=== PATIENT | male | born 1940 | race Caucasian/White ===

== ENCOUNTER 2018-04-15 10:01 | Day surgery (SDC) | payer OTHER ==
[~2018-04-15 10:01] MED LIST: ACETAMINOPHEN 325 MG TABLET (FP) PO PRN; OFLOXACIN 0.3% OPHTHALMIC SOLUTION 5 ML BOTTLE OP SCH
[2018-04-15 10:43] VITALS: BMI 25.2
[2018-04-15] MEDS ORDERED: PROPOFOL 20 ML ONE (11:47)
[2018-04-15] MEDS ORDERED: MIDAZOLAM HCL 2 MG/2 ML SINGLE DOSE VIAL ONE (11:47)
[2018-04-15] MEDS ORDERED: CYCLOPENTOLATE HCL 1% OPHTH SOLN 2 ML BOTTLE ONE (12:00)
[2018-04-15] MEDS ORDERED: ACETYLCHOLINE 1:100 INTRA-OCUL 20 MG/2 ML KIT ONE (12:01)
[2018-04-15] MEDS ORDERED: TRYPAN BLUE 0.5 ML DISP.SYRIN ONE ×2 (12:01→12:04)
[2018-04-15] MEDS ORDERED: TRIAMCINOLONE ACET 40MG/1ML VIAL ONE (12:02)
[2018-04-15] MEDS ORDERED: TROPICAMIDE 1% OPHTH SOLN 15 ML BOTTLE ONE (12:02)
[2018-04-15] MEDS ORDERED: BUPIVACAINE HCL/PF 0.75% 10 ML VIAL ONE (12:04)
[2018-04-15] MEDS ORDERED: BUPIVACAINE HCL/PF 0.75% 10 ML VIAL NR ONE (12:27)
[2018-04-15] MEDS ORDERED: LIDOCAINE HCL/PF 2% SDV 5ML VIAL INF ONE (12:27)
[2018-04-15] MEDS ORDERED: POVIDONE-IODINE 5% OPHTHALMIC PREP 30 ML SOLUTION OS ONE (12:28)
[2018-04-15] MEDS ORDERED: TRYPAN BLUE 0.5 ML DISP.SYRIN IO ONE (12:42)
[2018-04-15] MEDS ORDERED: CHONDROITIN SU A/HYALUR SOD 1 KIT IO ONE (12:42)
[2018-04-15] MEDS ORDERED: LIDOCAINE HCL 1% PRESERVATIVE FREE - 30ML VIAL IO ONE (12:42)
[2018-04-15] MEDS ORDERED: BSS (NA/CA/MG/K) BALANCED SALT SOLUTION OPHTH SOLN 15 ML BOTTLE OS ONE (12:42)
[2018-04-15] MEDS ORDERED: ACETYLCHOLINE 1:100 INTRA-OCUL 20 MG/2 ML KIT IO ONE (12:42)
[2018-04-15] MEDS ORDERED: CYCLOPENTOLATE HCL 1% OPHTH SOLN 2 ML BOTTLE OS ONE (13:19)
[2018-04-15] MEDS ORDERED: TROPICAMIDE 1% OPHTH SOLN 15 ML BOTTLE OS ONE (13:19)
[2018-04-15] MEDS ORDERED: PHENYLEPHRINE 2.5% OPHTH SOLN 15 ML BOTTLE OS ONE (13:19)
[2018-04-15] MEDS ORDERED: TRIAMCINOLONE ACET 40MG/1ML VIAL NR ONE (13:45)
[2018-04-15] MEDS ORDERED: ONDANSETRON 4 MG/2 ML VIAL IVPUSH PRN (13:58)
[2018-04-15] MEDS ORDERED: oxyCODONE HCL 5 MG TABLET PO PRN (13:58)
[2018-04-15] MEDS ORDERED: SODIUM CHLORIDE 1,000 ML IV SCH (14:00)
[2018-04-15 16:35] VITALS: BP 127/74; PULSE 68; TEMP 98.1
--- NOTE | 2018-04-16 06:32 | OP ---
DATE OF OPERATION: 04/15/2018 PREOPERATIVE DIAGNOSIS: Pseudophakia, bullous keratopathy; left eye. POSTOPERATIVE DIAGNOSIS: Pseudophakia, bullous keratopathy; left eye. PROCEDURE: Descemet stripping automated endothelial keratoplasty, left eye. ANESTHESIA: Peribulbar/modified Van Lint/MAC. COMPLICATIONS: None. PROCEDURE: The patient was brought into the operating room and correctly identified along with the operative site and the donor corneal tissue was inspected as well. The transport media was noted to be clear, and the cornea itself clear as well. The parameters accompanying the cornea were inspected. The patient was then given a peribulbar block and sedation with 5 mL 1:1 mixture of lidocaine and 0.75% bupivacaine; 2 mL of same mixture was given as a modified Van Lint block. The eye was then prepped and draped in the usual sterile fashion including 5% Betadine solution in the conjunctival sac and an eyelid drape. An eyelid speculum was then placed into the left eye. The cornea was inspected, and the diameters measured 11 mm vertically x 12 mm horizontally. The corneal epithelium was noted to be really loose and in fact sloughed off with minimal touching with a Weck spear. An 8.5 mm donor corneal trephine was then used to create the donor cornea. Attention was then placed back to the patient's cornea, and the corneal epithelium was completely removed to the limbus with a weck cell sponge. A central 8.0 mm corneal marking was placed, and 3 paracentesis ports were created. Through one of the paracentesis ports, Descemets membrane was then scored using a reverse Sinskey hook. This was scored for approximately 270 degrees. Trypan blue was then injected into the anterior chamber to stain the cornea, and then irrigated and aspirated with BSS as well as Miochol. The Provisc was then injected into the anterior chamber, and a temporal clear corneal wound was created. The remainding 90 degress of descemets membrane then scored using the reverse Sinskey hook and removed by peeling it using a combination of reverse Sinskey as well as Riki scraper and sent for histopathologic evaluation. The peripheral cornea stroma was then scraped with a Riki scraper to roughen it, and the irrigation/aspiration was performed of the viscoelastic. Care was made to also insure that there was no retained viscoelastic and no residual Descemet tags were noted. With the irrigation and aspiration port in the eye, two full thickness venting incisions were made using a Micro-Sharp blade, and then an anterior chamber maintainer was then placed inside the eye through one of the paracentesis ports. The temporal clear corneal wound was enlarged to 3.5 mm, and using a Busin forceps and glide, the donor cornea was then inserted into the eye with a pull-through technique, while maintaining its orientation. Care was made not to damage the endothelium during insertion. A single 10-0 nylon suture was placed into the temporal clear corneal wound and the anterior chamber filled with BSS. Two additional 10-0 nylon sutures were placed in the larger paracentesis ports, and hat parts cutter machine air bubble was injected into the anterior chamber to float the donor cornea up. Further BSS was injected to inflate the anterior chamber, and using air on a 30 gauge needle, a 100% air fill was then obtained. The cornea was noted to be well centered and with a good amount of intraocular pressure. The venting incisions were then opened, and no interface fluid was noted. A Crista sweeper was used externally from center to periphery to massage any residual interface fluid. Again, the venting incisions were opened, and no fluid was noted. Topical Mydriacyl 1%, Christopher-Synephrine 2.5%, and cyclopentolate 1% were then placed topically every 3 minutes for a total of 7 doses. The eye was observed for a total 20 minutes with 100% air fill. After 20 minutes, the air was partially removed, until approximately a 6 mm, mobile air bubble was was left inside the eye. Donor graft was still noted to be attached and not moving. All wounds were tested and found to be watertight. Topical vancomycin and Kenalog placed. The eye patched and shielded, and the patient discharged from the operating room in stable condition. JESSICA MOSLEY M.D. [id number] MTDGerald
--- NOTE | 2018-04-17 18:20 | PATH ---
Surgical Pathology Report Patient Name: BOB CONTI [place]. Rec. #: [id number] /Age/Gender: 1940 (Age: 77) / M Account: [id number] Location: [facility] Taken: 04/15/2018 Received: 04/16/2018 Reported: 04/17/2018 Physicians: Daniel Calderon M.D. Specimen(s) Received DESCEMET'S MEMBRANE, LEFT EYE Clinical History Bullous keratopathy left eye Final Diagnosis DESCEMET'S MEMBRANE, LEFT, DESCEMET'S STRIPPING AUTOMATED ENDOTHELIAL KERATOPLASTY: CONSISTENT WITH DESCEMET'S MEMBRANE. Electronically Signed Alize Landrum M.D. Gross Description Received in formalin labeled "Descemet's membrane left eye," is a 0.4 x 0.1 x 0.1 cm clear portion of membranous tissue. The specimen is submitted in toto in one cassette. /04/16/2018 saudi04/16/2018
== END 2018-04-15 16:30 | disposition home or self-care (01) ==
LOC: JASU-SURG 10:01
PROVIDERS: ATTEND Ophthalmology
PROC: 08R9XKZ Replacement of Left Cornea with Nonautologous Tissue Substitute, External Approach (ICD-10-PCS; principal; 2018-04-15 12:00)
DX: H18.12 Bullous keratopathy, left eye (principal)
CPT/HCPCS: 82962; 87070; 87102; 87205; 87210; 88304-TC; 94760